=== PATIENT | male | born 2000 | race Caucasian/White ===

== ENCOUNTER 2025-03-22 15:56 | Emergency (ER) | payer BC, SELFPAY ==
[2025-03-22 16:24] VITALS: BP 134/86
--- NOTE | 2025-03-22 18:00 | ED.GENMED ---
History of Present Illness
General
Chief Complaint: Head Injury
Time Seen by Provider: 03/22/25 16:54
History of Present Illness
History of Present Illness:
25-year-old otherwise healthy male presents to the emergency department for evaluation of right occipital headache for the past 5 days after striking his head while in his hammock. He had no loss of consciousness with the initial injury 5 days ago,
denies any nausea or vomiting. No associated dizziness or blurry vision. Headache is focal to the area that he struck. Normal appetite and normal sleep since that time. Has not taken any medications for pain.
Review of Systems
Review of Systems
Allergies reviewed?: Yes
All Other Systems: ROS reviewed and negative except as documented in HPI and ROS
Phy Exam
Physical Exam
Physical Exam:
GEN: Well appearing, NAD, WDWN
HEENT: No palpable cranial abnormalities, normocephalic, no cephalohematoma, oral mucosa moist, no scleral icterus, no nasal congestion
Cardiac: Regular rate
Lung: No respiratory distress, no tachypnea
MSK: No gross deformity or injuries
Skin: Good color, no pallor or jaundice, no rashes
Neuro: AO x3; CN II-XII grossly intact. BUE strength 5/5 in all kurtz, sensation intact and symmetric. BLE strength 5/5 in all kurtz, sensation intact and symmetric
Psych: Calm, cooperative
Course
Vital Signs
Initial and Last Documented VS:
Initial Vital Signs
Temp Pulse Resp BP Pulse Ox
98.5 F 86 18 134/86 100
03/22/25 16:24 03/22/25 16:24 03/22/25 16:24 03/22/25 16:24 03/22/25 16:24
Last Documented Vital Signs
Temp Pulse Resp BP Pulse Ox
98.5 F 74 16 124/74 99
03/22/25 16:24 03/22/25 18:04 03/22/25 18:04 03/22/25 18:04 03/22/25 18:04
MDM/Problems Addressed
MDM/Problems Addressed:
Low clinical suspicion for skull fracture or intracranial hemorrhage given normal neurologic exam and no symptoms of increased intracranial pressure. Likely soft tissue contusion supportive care discussed
*Pulse Oximetry
SaO2: 100
Oxygen Mode of Delivery: Room air
Patient hypoxic: no
*Critical Care Note
Total Time (30-74mins, 75-104mins- exclusive of procedures): Not Applicable
ED Attending Note
-
Portions of this chart may have been created with voice recognition software.� Occasional wrong word or��sound alike� substitutions may have occurred due to the inherent limitations of voice recognition software.
Discharge Plan
Departure
Patient Disposition: Home (Routine Discharge)
Date of Disposition: 03/22/25
Time of Disposition: 18:01
Patient with high blood pressure during this ER visit?: No
Discharge Problem:
Closed head injury
Instructions: Head Injury in Adults (DC)
Interventions
Interventions:
*Risk Screen - Suicide Last Done: 03/22/25 16:24
*General Assessment Last Done: 03/22/25 16:24
*Neglect/Abuse Screening Last Done: 03/22/25 17:33
*ED- Fall Risk Assessment Last Done: 03/22/25 17:33
*ED COVID-19 Vaccine History Last Done: 03/22/25 16:24
*Nursing Disposition Last Done: 03/22/25 18:04
ED- Neurological Assessment Last Done: 03/22/25 17:33
ED-Skin Assessment Last Done: 03/22/25 17:33
Discharge Date and Time
Discharge Date/Time: 03/22/25 18:04
Print Language: FINNISH
[2025-03-22 18:04] VITALS: BP 124/74
== END 2025-03-22 18:04 | disposition home or self-care (01) ==
LOC: EMR 15:56
PROVIDERS: EMERGENCY PHYSICIAN Emergency Medicine
DX: S09.90XA Unspecified injury of head, initial encounter (principal); W22.8XXA Striking against or struck by other objects, initial encounter
CPT/HCPCS: 99282